=== PATIENT | male | born 1965 | race Two or more races ===

== ENCOUNTER 2023-12-30 15:46 | Inpatient (IN) | payer MEDICARE, OTHER ==
[~2023-12-30] VITALS: Ht 152.4 cm; Wt 55.3 kg
[2023-12-30] MEDS ORDERED: OLANZAPINE 10 MG VIAL IM ONE (16:21)
[2023-12-30] MEDS: OLANZAPINE 10 MG VIAL IM ONE (16:30)
[2023-12-30 17:28] LABS: BASOPHILS # (AUTO) 0.1 K/uL (0.0-0.2); BASOPHILS % (AUTO) 0.6 % (0.0-2.0); EOSINOPHILS # (AUTO) 0.3 K/uL (0.0-0.7); EOSINOPHILS % (AUTO) 3.2 % (0.0-6.0); HEMATOCRIT 38 % (39-51); HEMOGLOBIN 12.8 g/dL (13.5-17.5); LYMPHOCYTES # (AUTO) 3.5 K/uL (0.8-4.8); LYMPHOCYTES % (AUTO) 37.8 % (20.0-44.0); MEAN CORPUSCULAR HEMOGLOBIN 31 PG (26.0-33.0); MEAN CORPUSCULAR HGB CONC 34 g/dl (31.0-36.0); MEAN CORPUSCULAR VOLUME 92 fL (80-96); MONOCYTES # (AUTO) 0.5 K/uL (0.1-1.30); MONOCYTES % (AUTO) 5.3 % (2.0-12.0); NEUTROPHILS % (AUTO) 53.1 % (43.0-81.0); PLATELET COUNT (AUTO) 228 K/uL (150-450); RED BLOOD CELL COUNT(AUTO) 4.12 MIL/uL (4.5-6.0); RED CELL DISTRIBUTION WIDTH 13.7 % (11.5-15.0); WHITE BLOOD COUNT (AUTO) 9.4 K/uL (4.3-11.0)
[2023-12-30 17:38] LABS: CALCIUM, SERUM 8.6 mg/dL (8.5-10.1); CARBON DIOXIDE 29 mmol/L (21-32); CHLORIDE 108 mmol/L (98-107); GLUCOSE 100 mg/dL (74-106); POTASSIUM 3.7 mmol/L (3.5-5.1); SODIUM SERUM 144 mmol/L (136-145); UREA NITROGEN, BLOOD 16 mg/dL (7-18)
[2023-12-30 17:43] LABS: ACETAMINOPHEN < 10 ug/ml (10-30); ALANINE AMINOTRANSFERASE 22 U/L (12-78); ALBUMIN 3.1 g/dL (3.4-5.0); ALCOHOL, BLOOD < 3 mg/dL (0-10); ALKALINE PHOSPHATASE 77 U/L (46-116); ASPARTATE AMINOTRANSFERASE 16 U/L (15-37); BILIRUBIN,DIRECT 0.1 mg/dL (0.0-0.2); BILIRUBIN,TOTAL 0.5 mg/dL (0.2-1.0); TOTAL PROTEIN, SERUM 7.6 g/dL (6.4-8.2)
[2023-12-30 17:49] LABS: SALICYLATE 0.5 mg/dL (2.8-20.0)
[2023-12-30 18:46] VITALS: O2SAT 97
[2023-12-30 19:03] LABS: APPEARANCE,URINE CLEAR (CLEAR); BILIRUBIN,URINE NEGATIVE (NEGATIVE); BLOOD, URINE TRACE-INTA Ery/uL (NEGATIVE); COLOR,URINE YELLOW (YELLOW); KETONES,URINE NEGATIVE (NEGATIVE); LEUKOCYTE ESTERASE ,URINE NEGATIVE (NEGATIVE); NITRITE, URINE NEGATIVE (NEGATIVE); PH,URINE 5.5 (5.0-8.0); PROTEIN,URINE NEGATIVE (NEGATIVE); UGLUCOSE NEGATIVE (NEGATIVE); UROBILINOGEN,URINE 0.2 EU/dL (0.2)
[2023-12-30 19:09] LABS: ADD URINE CULTURE NO; BACTERIA,URINE Few /HPF (None Seen); MUCUS,URINE Few /LPF (None Seen); SQUAMOUS EPITHELIAL CELL,UR 0-2 /HPF (None Seen); WBC,URINE 0-2 /HPF (0-3)
[2023-12-30 19:16] LABS: AMPHETAMINE, URINE NEGATIVE (NEGATIVE); BARBITURATE, URINE NEGATIVE (NEGATIVE); CANNABINOID, URINE NEGATIVE (NEGATIVE); COCCAINE, URINE NEGATIVE (NEGATIVE); OPIATE, URINE NEGATIVE (NEGATIVE); PHENCYCLIDINE SCREEN,URINE NEGATIVE (NEGATIVE)
[2023-12-30 19:17] LABS: BENZODIAZEPINE, URINE POSITIVE (NEGATIVE)
[2023-12-30] MEDS ORDERED: CYAN500T64 PO (21:40)
[2023-12-30] MEDS ORDERED: CHOL100040 PO (21:40)
[2023-12-30] MEDS ORDERED: TRAZ-257 PO (21:40)
[2023-12-30] MEDS ORDERED: ATOR10TA PO (21:40)
[2023-12-30] MEDS ORDERED: BENZ1TAB7 PO (21:40)
[2023-12-30] MEDS ORDERED: LEVO50TA8 PO (21:40)
[2023-12-30] MEDS ORDERED: ACET325T53 PO (21:40)
[2023-12-30] MEDS ORDERED: QUET50TA PO (21:40)
[2023-12-30] MEDS ORDERED: MULT-754 PO (21:40)
[2023-12-30] MEDS ORDERED: COLC0.6T67 PO (21:40)
[2023-12-30] MEDS ORDERED: ZOLPIDEM TARTRATE 5 MG TABLET PO PRN (23:00)
[2023-12-30] MEDS ORDERED: MAG HYDROX/AL HYDROX/SIMETH 30 ML UDC PO PRN (23:00)
[2023-12-30] MEDS ORDERED: MAGNESIUM HYDROXIDE 30 ML UDC PO PRN (23:00)
[2023-12-30] MEDS: LORAZEPAM 1 MG TABLET PO PRN (23:30)
[2023-12-30] MEDS: BLOOD SUGAR DIAGNOSTIC 1 EACH STRIP IN ONE (23:30)
[2023-12-31] MEDS: LORAZEPAM 1 MG TABLET PO PRN (07:33)
[2023-12-31] MEDS: OLANZAPINE 10 MG VIAL IM ONE (07:56)
[2023-12-31] MEDS ORDERED: OLANZAPINE 10 MG VIAL IM ONE (08:00)
[2023-12-31] MEDS: BENZTROPINE MESYLATE (1 MG) 1 MG TABLET PO SCH (16:58)
[2023-12-31] MEDS: OLANZAPINE 2.5 MG TABLET PO SCH (16:58)
[2023-12-31] MEDS: LITHIUM CARBONATE 150 MG CAPSULE PO SCH (21:00)
[2024-01-01] MEDS: ZOLPIDEM TARTRATE 5 MG TABLET PO PRN (01:26)
[2024-01-01] MEDS: OLANZAPINE 10 MG VIAL IM ONE (07:27)
[2024-01-01 08:00] VITALS: BP_SYST 100; BP_SYST 105; BP_DIAS 65; BP_DIAS 78; TEMP 97.6; TEMP 97.7; O2SAT 95; O2SAT 97
[2024-01-01] MEDS: LEVOTHYROXINE SODIUM 50 MCG TABLET PO SCH (08:25)
[2024-01-01] MEDS: CYANOCOBALAMIN 500 MCG TABLET PO SCH (08:28)
[2024-01-01] MEDS: COLCHICINE 0.6 MG TABLET PO SCH (08:28)
[2024-01-01 16:00] VITALS: BP 100/65; TEMP 97.7; O2SAT 97
[2024-01-01 20:21] VITALS: BP 111/75; TEMP 97.9; O2SAT 96
[2024-01-02 08:10] VITALS: BP 98/58; TEMP 98.2; O2SAT 96
[2024-01-02 15:56] VITALS: BP 96/77; TEMP 97.6; O2SAT 95
[2024-01-02 20:10] VITALS: BP 112/80; TEMP 97.8; O2SAT 96
[2024-01-02] MEDS: ACETAMINOPHEN 325 MG TABLET PO PRN (21:49)
[2024-01-03 08:17] VITALS: BP 107/90; TEMP 98.7; O2SAT 96
[2024-01-03] MEDS: Z GUARD REMEDY 4 OZ OINT TP SCH (09:17)
[2024-01-03 16:00] VITALS: BP 101/55; TEMP 98; O2SAT 99
[2024-01-03 20:00] VITALS: BP 105/57; TEMP 98.7; O2SAT 99
[2024-01-04 08:00] VITALS: BP 113/52; TEMP 98; O2SAT 96
[2024-01-04] MEDS: LITHIUM CARBONATE 150 MG CAPSULE PO SCH (11:08)
[2024-01-04 16:00] VITALS: BP 104/65; TEMP 98.6; O2SAT 97
[2024-01-04 20:00] VITALS: BP 97/52; TEMP 97.2; O2SAT 96
[2024-01-05 08:00] VITALS: BP 106/74; TEMP 97.8; O2SAT 97
[2024-01-05 16:15] VITALS: BP 133/52; TEMP 97.8; O2SAT 96
[2024-01-06 08:00] VITALS: BP 104/54; TEMP 97.8; O2SAT 97
[2024-01-06 16:00] VITALS: BP 106/52; TEMP 97.9; O2SAT 96
[2024-01-06 20:00] VITALS: BP 104/30; TEMP 97.9; O2SAT 97
[2024-01-07 08:00] VITALS: BP 100/73; TEMP 98; O2SAT 98
[2024-01-07] MEDS: BENZTROPINE MESYLATE (1 MG) 1 MG TABLET PO PRN (08:23)
[2024-01-07 16:00] VITALS: BP 103/81; TEMP 98.1; O2SAT 96
[2024-01-07 20:38] VITALS: BP 107/76; TEMP 98.3; O2SAT 98
[2024-01-08 08:00] VITALS: BP 90/53; TEMP 97.7; O2SAT 95
[2024-01-08 16:00] VITALS: BP 105/63; TEMP 98.6; O2SAT 94
[2024-01-08 21:27] VITALS: BP 111/76; TEMP 98.2; O2SAT 97
[2024-01-09 08:00] VITALS: BP 100/68; TEMP 98.2; O2SAT 98
[2024-01-09 16:00] VITALS: BP 112/67; TEMP 97.9; O2SAT 98
[2024-01-09 20:21] VITALS: BP 119/79; TEMP 98.1; O2SAT 97
[2024-01-10 08:00] VITALS: BP 108/94; TEMP 97.7; O2SAT 95
[2024-01-10] MEDS: OLANZAPINE 10 MG VIAL IM ONE (15:30)
[2024-01-10 20:51] VITALS: BP 92/62; TEMP 97.9; O2SAT 100
[2024-01-11 08:00] VITALS: BP 100/51; TEMP 97.7; O2SAT 96
[2024-01-11] MEDS: OLANZAPINE 10 MG VIAL IM ONE (10:30)
[2024-01-11] MEDS: OLANZAPINE 2.5 MG TABLET PO SCH (16:24)
[2024-01-11] MEDS: CLOTRIMAZOLE 1% 15 GM TUBE TP SCH (16:24)
[2024-01-12 07:57] VITALS: BP 101/63; TEMP 96.9; O2SAT 98
[2024-01-12 16:06] VITALS: BP 119/66; TEMP 98.2; O2SAT 93
[2024-01-12 20:00] VITALS: BP 122/62; TEMP 98.3; O2SAT 98
[2024-01-13 08:00] VITALS: BP 119/63; TEMP 97.6; O2SAT 98
[2024-01-13 16:00] VITALS: BP 108/67; TEMP 98.6; O2SAT 98
[2024-01-13 20:00] VITALS: BP 112/64; TEMP 98.3; O2SAT 98
[2024-01-14 08:00] VITALS: BP 102/60; TEMP 97.9; O2SAT 94
== END 2024-01-14 14:45 | DRG 885 ==
LOC: ER 15:50 → GPS 20:49
PROVIDERS: ADMIT Psychiatry & Neurology Psychiatry; ATTEND Internal Medicine
DX: F29 Unspecified psychosis not due to a substance or known physiological condition (principal); F79 Unspecified intellectual disabilities; I31.39 Other pericardial effusion (noninflammatory); E44.1 Mild protein-calorie malnutrition; Q90.9 Down syndrome, unspecified; E78.5 Hyperlipidemia, unspecified; D64.9 Anemia, unspecified; E03.9 Hypothyroidism, unspecified; F41.9 Anxiety disorder, unspecified; E88.09 Other disorders of plasma-protein metabolism, not elsewhere classified; M20.42 Other hammer toe(s) (acquired), left foot; M20.41 Other hammer toe(s) (acquired), right foot; Z79.899 Other long term (current) drug therapy; Z20.822 Contact with and (suspected) exposure to COVID-19; Z73.6 Limitation of activities due to disability; S80.12XA Contusion of left lower leg, initial encounter; X58.XXXA Exposure to other specified factors, initial encounter; Y93.9 Activity, unspecified; Y92.129 Unspecified place in nursing home as the place of occurrence of the external cause; Z68.23 Body mass index [BMI] 23.0-23.9, adult; M10.9 Gout, unspecified
CPT/HCPCS: 36415; 80048-TC; 80076-TC; 80178-TC; 81001; 84443-TC; 85025-TC; 87081-TC; 93307-TC; 97112-TC; 97116-TC; 97530-TC; G0480; J3490